=== PATIENT | female | born 1955 | race Caucasian/White ===

== ENCOUNTER 2017-01-02 11:06 | Emergency (ER) | payer BC ==
[2017-01-02] MEDS ORDERED: 0.9 % SODIUM CHLORIDE 1,000 ML BAG IV ONE (11:08)
--- NOTE | 2017-01-02 11:13 | Emergency Department Record ---
History of Present Illness - General Stated Complaint: DIZZINESS/CLAMMY FEELING Time Seen by Provider: 01/02/17 11:08 Source: Patient Mode of Arrival: Ambulatory Limitations: No limitations - History of Present Illness Initial comments: 61 yo female presents with episodes over the last 2-3 days. She states she develops a clammy, nauseated, dizzy feeling. The symptoms come and go in waves. She feels nauseated but no vomiting. No chest pain. She feels a sense of room spinning at times. She has associated gassy bloated feeling. No history of CAD. She states she has anemia and hypothyroidism. Her PCP is Dr Suarez in [place]. She has significant anxiety that worsens when an episode occurs -: Days(s) Location: Head Radiation: Non-Radiating Quality: Other Consistency: Intermittent Improves with: Immobilization Worsens with: Movement Associated Symptoms: Diaphoresis, Loss of appetite, Nausea/vomiting, Weakness - Arrington Coma Scale Eye Response: (4) Open spontaneously Motor Response: (6) Obeys commands Verbal Response: (5) Oriented Gemma Total: 15 - Related Data Home Medications Medication Instructions Recorded Confirmed Last Taken Buspirone HCl [Buspar] 10 mg PO DAILY 07/28/15 01/02/17 12/15/16 C-Diclofenac 5% 1 ml TOP TID 07/28/15 01/02/17 01/01/17 Clonazepam [Klonopin] 1 mg PO TID 07/28/15 01/02/17 01/01/17 Cyanocobalamin (Vitamin B-12) 1,500 mcg PO DAILY 07/28/15 01/02/17 01/01/17 [Vitamin B-12] Ergocalciferol (Vitamin D2) 50,000 unit PO WEEKLY 07/28/15 07/28/15 01/01/17 [Vitamin D2] Levothyroxine Sodium [Levoxyl] 100 mcg PO DAILY 07/28/15 01/02/17 01/02/17 Pnv No.95/Ferrous Fum/Folic AC 1 each PO DAILY 07/28/15 01/02/17 01/01/17 [ Tablet] Ranitidine HCl [Zantac] 150 mg PO DAILY PRN 07/28/15 07/28/15 12/15/16 Zinc 100 mg PO DAILY 07/28/15 07/28/15 01/01/17 Previous Rx's Medication Instructions Recorded Meclizine HCl [Antivert] 25 mg PO Q8H #15 tablet 01/02/17 Ondansetron [Zofran Odt] 4 mg PO Q8H #15 tab.rapdis 01/02/17 Allergies Allergy/AdvReac Type Severity Reaction Status Date / Time No Known Drug Allergies Allergy Unknown Unverified 11/11/13 10:06 [NO KNOWN DRUG ALLERGIES] Review of Systems Constitutional: Reports: Malaise, Weakness. Denies: Chills, Fever Eyes: Denies: Eye discharge, Eye pain, Photophobia, Vision change ENT: Denies: Congestion, Throat pain Respiratory: Denies: Cough, Dyspnea, Hemoptysis, Stridor, Wheezes Cardiovascular: Denies: Arrhythmia, Chest pain, Dyspnea on exertion, Edema, Palpitations, Syncope Endocrine: Reports: Fatigue Gastrointestinal: Reports: Nausea. Denies: Abdominal pain, Diarrhea, Vomiting Genitourinary: Denies: Dyspareunia, Dysuria, Retention, Urgency Musculoskeletal: Denies: Arthralgia, Back pain, Joint swelling, Myalgia Skin: Denies: Bruising, Change in color, Rash Neurological: Reports: Vertigo, Weakness. Denies: Confusion, Headache, Numbness , Tingling, Tremors Psychiatric: Reports: Anxiety Hematological/Lymphatic: Denies: Blood Clots, Easy bleeding, Easy bruising, Swollen glands Past Medical History - SOCIAL HISTORY Smoking Status: Never smoker - RESPIRATORY Hx Respiratory Disorders: No - CARDIOVASCULAR Hx Cardio Disorders: No - NEURO Hx Neuro Disorders: No - GI Hx GI Disorders: Yes Hx Irritable Bowel: Yes - Hx Genitourinary Disorders: Yes Hx Bladder Problem: Yes (stress incontinence) Comment:: pessary - ENDOCRINE Hx Endocrine Disorders: No Hx Thyroid Disease: Yes Comment:: hypothyroid - MUSCULOSKELETAL Hx Musculoskeletal Disorders: Yes Hx Arthritis: Yes Hx Osteoporosis: Yes - PSYCH Hx Psych Problems: Yes Hx Anxiety: Yes Hx Depression: Yes - HEMATOLOGY/ONCOLOGY Hx Hematology/Oncology Disorders: No Family Medical History Hx Diabetes: Mother Physical Exam - General General Appearance: Alert, Oriented x3, Cooperative, No acute distress, Anxious Limitations: No limitations - Head Head exam: Atraumatic, Normocephalic, Normal inspection - Eye Eye exam: Normal appearance, PERRL, EOMI. negative: Conjunctival injection, Nystagmus, Periorbital swelling, Scleral icterus - ENT ENT exam: Normal exam Ear exam: Normal external inspection Nasal Exam: Normal inspection Mouth exam: Normal external inspection Teeth exam: Normal inspection Throat exam: Normal inspection - Neck Neck exam: Normal inspection, Full ROM. negative: Tenderness - Respiratory Respiratory exam: Normal lung sounds bilaterally. negative: Respiratory distress, Rhonchi, Stridor, Wheezes - Cardiovascular Cardiovascular Exam: Regular rate, Normal rhythm, Normal heart sounds Peripheral Pulses: 2+: Radial (R), Radial (L) - GI/Abdominal GI/Abdominal exam: Soft. negative: Tenderness - Rectal Rectal exam: Deferred - exam: Deferred - Extremities Extremities exam: Normal inspection, Full ROM, Normal capillary refill. negative: Pedal edema, Tenderness - Back Back exam: Reports: Normal inspection, Full ROM. Denies: CVA tenderness (R), CVA tenderness (L), Muscle spasm, Paraspinal tenderness, Rash noted, Tenderness , Vertebral tenderness - Neurological Neurological exam: Alert, CN II-XII intact, Normal gait, Oriented X3, Reflexes normal. negative: Abnormal gait, Altered, Motor sensory deficit - Psychiatric Psychiatric exam: Anxious (mild) - Skin Skin exam: Dry, Intact, Normal color, Warm Course - Reevaluation(s) Reevaluation #1: The labs were reviewed. Hgb is 9.7 (She has known iron deficient anemia. She is starting iron through her doctor) Troponin is 0.012 No acute changes on the CMP The HCT was negative for any acute changes. 01/02/17 12:22 Reevaluation #2: TSH is 1.0 01/02/17 12:49 Reevaluation #3: The nausea, room spinning and dizziness are nearly gone and well controlled at this time. She continues IVF and is resting very comfortably. 01/02/17 13:08 Reevaluation #4: The patient continues to do well without recurrent room spinning or nausea 01/02/17 14:13 Reevaluation #5: Repeat Troponin is negative The patient continues to have controlled nausea and room spinning DC home with home care instructions and instructions on returning to the ER 01/02/17 16:00 Procedures - EKG Initial Date: 01/02/17 Time: 11:10 EKG: No Acute Changes EKG Detail: NSR, rate 68, intervals normal, axis normal, ST no acute changes Medical Decision Making - Lab Data Result diagrams: 01/02/17 11:40 01/02/17 11:40 Disposition Disposition: Discharge Clinical Impression: Dizziness Disposition: Home, Self-Care Condition: (1) Good Instructions: Dizziness (ED) Additional Instructions: Call your doctor today to schedule close follow up of your symptoms Return if you have any return of your symptoms You may take Zofran as directed for mild nausea and Antivert for dizziness Prescriptions: Meclizine HCl [Antivert] 25 mg PO Q8H #15 tablet Ondansetron [Zofran Odt] 4 mg PO Q8H #15 tab.[email or web address] Time of Disposition: 16:01
[2017-01-02] MEDS ORDERED: ONDANSETRON HCL IV 4 MG/2 ML VIAL IVP ONE ×2 (11:29→14:18)
[2017-01-02 11:49] LABS: BASO % 0.4 % (0-6); EOS % 2.4 % (0-6); GRAN % 69.2 % (47-80); LYMPH % 20.5 % (16-45); MEAN CORPUSCULAR HGB CONC 29.4 g/dl (32-36); MONO % 7.5 % (0-9); PLATELET COUNT 231 K/uL (130-400); RED BLOOD COUNT 5.06 M/uL (3.80-5.40); RED CELL DISTRIBUTION WIDTH 19.7 % (11.5-14.5); WHITE BLOOD COUNT W/O DIFF 4.9 K/uL (4.2-12.2)
[2017-01-02 12:00] LABS: HEMOGLOBIN 9.7 gm/dl (11.6-16.0); MEAN CORPUSCULAR HEMOGLOBIN 19.1 pg (27-33)
[2017-01-02 12:01] LABS: MEAN CELL VOLUME 65.2 fl (81-97)
[2017-01-02 12:05] LABS: ALB/GLOB RATIO 1.3 (1.1-1.8); ALBUMIN 4.3 gm/dL (3.5-5.0); ALKALINE PHOSPHATASE 86 U/L (38-126); ALT/SGPT 24 U/L (9-52); ANION GAP 9.3 (7-16); AST/SGOT 23 U/L (14-36); BILIRUBIN,TOTAL 0.71 mg/dL (0.2-1.3); BLOOD UREA NITROGEN 13 mg/dL (7-17); CARBON DIOXIDE 25.7 mmol/L (22-30); CREATININE 0.7 mg/dL (0.52-1.04); EST GLOMERULAR FILTRATION RATE > 60 ml/min; GLUCOSE,RANDOM 113 mg/dL (70-110); TOTAL PROTEIN 7.6 gm/dL (6.3-8.2)
[2017-01-02 12:09] LABS: URINE APPEARANCE CLEAR; URINE BILIRUBIN NEGATIVE (NEGATIVE); URINE BLOOD NEGATIVE (NEGATIVE); URINE COLOR YELLOW; URINE GLUCOSE (UA) NEGATIVE (NEGATIVE); URINE KETONE NEGATIVE (NEGATIVE); URINE LEUKOCYTE ESTERASE NEGATIVE (NEGATIVE); URINE NITRITE NEGATIVE (NEGATIVE); URINE PROTEIN NEGATIVE (NEGATIVE); URINE UROBILINOGEN 0.2 E.U./dL (0.20 - 1.00)
[2017-01-02 12:16] LABS: INR 0.97; PARTIAL THROMBOPLASTIN TIME 22.9 SECONDS (24.5-39.1)
[2017-01-02 12:17] LABS: TROPONIN I < 0.012 ng/mL (0.00-0.034)
[2017-01-02] MEDS ORDERED: MECLIZINE 25 MG TABLET PO ONE (12:23)
[2017-01-02 12:35] LABS: THYROID STIMULATING HORMONE 1.08 uIU/ml (0.465-4.68)
--- NOTE | 2017-01-03 08:40 | CT SCAN REPORT ---
EXAM: CT OF THE HEAD WITHOUT CONTRAST HISTORY: DIZZINESS, WEAKNESS AND SHAKINESS WITH NAUSEA FOR THREE DAYS. TECHNIQUE: Routine noncontrast CT examination of the head was performed. Comparison: None. FINDINGS: There is borderline to mild prominence of the subarachnoid spaces. The ventricles are not enlarged. Minor periventricular and subcortical white matter lucencies questioned within the frontal lobes. No other area of abnormally increased or decreased attenuation is noted throughout the brain substance. No abnormal extraaxial fluid collection is seen. The visualized paranasal sinuses and mastoid air cells are clear. The orbits as visualized are unremarkable. IMPRESSION: 1. NO CT EVIDENCE OF ACUTE MAJOR VESSEL INFARCT, INTRACRANIAL HEMORRHAGE, NOR MASS. 2. BORDERLINE CORTICAL ATROPHY. MINIMAL WHITE MATTER LUCENCIES IN EACH FRONTAL LOBE ARE NONSPECIFIC, BUT LIKELY AREAS OF CHRONIC SMALL VESSEL ISCHEMIA. JOB NUMBER: [id number] [facility]
== END 2017-01-02 16:24 | disposition home or self-care (01) ==
LOC: ER 11:06
DX: R42 Dizziness and giddiness (principal); R11.0 Nausea; E03.9 Hypothyroidism, unspecified; D50.9 Iron deficiency anemia, unspecified; R53.1 Weakness; R14.0 Abdominal distension (gaseous)
CPT/HCPCS: 99284 ×2; 96376; 96374; 96361; 83735; 85025; 85730; 85610; 84484; 80053; 81003; 84443; 70450; 93005; 93010; J2405; J7030

== ENCOUNTER 2019-06-07 13:51 | Emergency (ER) | payer BC ==
[2019-06-07 15:18] LABS: ABSOLUTE NEUTROPHIL COUNT 4.18; BASO % 0.5 % (0-6); EOS % 3.9 % (0-6); GRAN % 71.1 % (47-80); HEMATOCRIT 44.3 % (35.0-47.0); HEMOGLOBIN 13.8 gm/dl (11.6-16.0); LYMPH % 16.8 % (16-45); MEAN CELL VOLUME 83.3 fl (81-97); MEAN CORPUSCULAR HEMOGLOBIN 25.9 pg (27-33); MEAN CORPUSCULAR HGB CONC 31.2 g/dl (32-36); MEAN PLATELET VOLUME 12.9 fl (7.4-10.4); MONO % 7.7 % (0-9); PLATELET COUNT 132 K/uL (130-400); RED BLOOD COUNT 5.32 M/uL (3.80-5.40); RED CELL DISTRIBUTION WIDTH 15.7 % (11.5-14.5); WHITE BLOOD COUNT W/O DIFF 5.9 K/uL (4.2-12.2)
[2019-06-07 15:23] LABS: BLOOD UREA NITROGEN 13 mg/dL (8-23); CREATININE 0.6 mg/dL (0.5-0.9); EST GLOMERULAR FILTRATION RATE > 60 mL/min
[2019-06-07 15:26] LABS: GLUCOSE,RANDOM 116 mg/dL (74-109)
--- NOTE | 2019-06-07 15:37 | CT SCAN REPORT ---
EXAMINATION: CT Head without IV Contrast EXAM DATE: 06/07/2019 3:23 PM TECHNIQUE: Standard protocol CT images of the head were obtained without intravenous contrast. Davies l and sagittal reconstructed images were created. INDICATION: headache COMPARISON: CT scan head dated January 02, 2017 HAND DOMINANCE: Unknown. ENCOUNTER: Not applicable FINDINGS: 1. There is no intracranial mass, midline shift, extraaxial fluid collection or hemorrhage. 2. The ventricles, sulci and cisterns are normal. 3. Within the anterior aspect of left thalamus, there is a 3.4 mm focus of decreased attenuation whi ch may represent chronic lacunar infarct. 4. There is no fracture. 5. The visualized aspects of the orbits, paranasal sinuses, and mastoid air cells are normal. IMPRESSION: Findings suggestive of a 3 mm chronic lacunar infarct within the anterior aspect of the left thalamus . Otherwise no CT evidence of an acute intracranial process. Dictated by: Flaco Chamberlain MD on 06/07/2019 3:33 PM. .
[2019-06-07 16:08] LABS: ERYTHROCYTE SEDIMENTATION RATE 7 mm/hr (0-30)
--- NOTE | 2019-06-07 16:12 | Emergency Department Record ---
History of Present Illness - General Chief Complaint: Headache Migraine Stated Complaint: VALENTINO Time Seen by Provider: 06/07/19 14:33 Source: Patient Mode of Arrival: Ambulatory Limitations: No limitations - History of Present Illness Initial Comments: last night at 1800 pt had a sudden onset of numbness of her r hand, arm, and face w blurry vision in her r eye. she then developed a 'massive headache'. the numbness is gone now but the headache is still there but better. it is a dull sche now. she went to her pain clinic dr cisneros and they told her to go the emergency dept. Complaint: Headache Onset/Timin -: Hour(s) Onset Description: Sudden Location: Diffuse Quality: Aching, Other Consistency: Other (getting better) Context: Occured at rest Associated Symptoms: Nausea - Symptoms of Stroke Symptom Onset Unknown: Yes (states started 1800 06/06/19. Now resolved except for headache.) Symptoms of stroke: Numbness, Weakness of Face Muscles - Related Data Previous Rx's Medication Instructions Recorded Meclizine HCl [Antivert] 25 mg PO Q8H #15 tablet 01/02/17 Allergies Allergy/AdvReac Type Severity Reaction Status Date / Time No Known Drug Allergies Allergy Unknown Verified 06/07/19 14:11 [NO KNOWN DRUG ALLERGIES] Travel Screening - Travel/Exposure Within Last 30 Days Have you traveled within the last 30 days?: No - Travel/Exposure Within Last Year Have you traveled outside the [place] in the last year?: No - Additonal Travel Details Have you been exposed to anyone with a communicable illness?: No - Travel Symptoms Symptom Screening: Headache Review of Systems Reviewed: No additional complaints except as noted below Constitutional: Reports: As per HPI. Denies: Chills, Fever, Malaise, Night sweats, Weakness, Weight change Eyes: Reports: As per HPI. Denies: Eye discharge, Eye pain, Photophobia, Vision change ENT: Reports: As per HPI. Denies: Congestion, Dental pain, Ear pain, Epistaxis, Hearing loss, Throat pain Respiratory: Reports: As per HPI. Denies: Cough, Dyspnea, Hemoptysis, Stridor, Wheezes Cardiovascular: Reports: As per HPI. Denies: Arrhythmia, Chest pain, Dyspnea on exertion, Edema, Murmurs, Orthopnea, Palpitations, Paroxysmal nocturnal dyspnea, Rheumatic Fever, Syncope Endocrine: Reports: As per HPI. Denies: Fatigue, Heat or cold intolerance, Polydipsia, Polyuria Gastrointestinal: Reports: As per HPI. Denies: Abdominal pain, Constipation, Diarrhea, Hematemesis, Hematochezia, Melena, Nausea, Vomiting Genitourinary: Reports: As per HPI. Denies: Abnormal menses, Discharge, Dyspareunia, Dysuria, Frequency, Hematuria, Incontinence, Retention, Urgency Musculoskeletal: Reports: As per HPI. Denies: Arthralgia, Back pain, Gout, Joint swelling, Myalgia, Neck pain Skin: Reports: As per HPI. Denies: Bruising, Change in color, Change in hair/nails, Lesions, Pruritus, Rash Neurological: Reports: As per HPI. Denies: Abnormal gait, Confusion, Headache, Numbness, Paresthesias, Seizure, Tingling, Tremors, Vertigo, Weakness Psychiatric: Reports: As per HPI. Denies: Anxiety, Auditory hallucinations, Depression, Homicidal thoughts, Suicidal thoughts, Visual hallucinations Hematological/Lymphatic: Reports: As per HPI. Denies: Anemia, Blood Clots, Easy bleeding, Easy bruising, Swollen glands Past Medical History - SOCIAL HISTORY Smoking Status: Never smoker Alcohol Use: None Drug Use: None - RESPIRATORY Hx Respiratory Disorders: No - CARDIOVASCULAR Hx Cardio Disorders: No - NEURO Hx Neuro Disorders: No - GI Hx GI Disorders: Yes Hx Irritable Bowel: Yes - Hx Genitourinary Disorders: Yes Hx Bladder Problem: Yes (stress incontinence) Comment:: pessary - ENDOCRINE Hx Endocrine Disorders: No Hx Thyroid Disease: Yes Comment:: hypothyroid - MUSCULOSKELETAL Hx Musculoskeletal Disorders: Yes Hx Arthritis: Yes Hx Osteoporosis: Yes - PSYCH Hx Psych Problems: Yes Hx Anxiety: Yes Hx Depression: Yes - HEMATOLOGY/ONCOLOGY Hx Hematology/Oncology Disorders: No Family Medical History Any Significant Family History?: No Hx Diabetes: Mother Physical Exam - General General Appearance: Alert, Oriented x3, Cooperative, No acute distress - Head Head exam: Normal inspection - Eye Eye exam: Normal appearance, PERRL, EOMI Pupils: Normal accommodation - ENT ENT exam: Normal exam, Mucous membranes moist, Normal external ear exam, Normal orophraynx Ear exam: Normal external inspection. negative: External canal tenderness Nasal Exam: Normal inspection. negative: Discharge, Sinus tenderness Mouth exam: Normal external inspection, Tongue normal Teeth exam: Normal inspection. negative: Dental caries Throat exam: Normal inspection. negative: Tonsillar erythema, Tonsillar exudate - Neck Neck exam: Normal inspection, Full ROM. negative: Tenderness - Respiratory Respiratory exam: Normal lung sounds bilaterally. negative: Respiratory distress - Cardiovascular Cardiovascular Exam: Regular rate, Normal rhythm, Normal heart sounds - GI/Abdominal GI/Abdominal exam: Soft, Normal bowel sounds. negative: Tenderness - Rectal Rectal exam: Deferred - exam: Deferred - Extremities Extremities exam: Normal inspection, Full ROM, Normal capillary refill. negative: Tenderness - Back Back exam: Reports: Normal inspection, Full ROM. Denies: Muscle spasm, Rash noted, Tenderness - Neurological Neurological exam: Alert, CN II-XII intact, Normal gait, Oriented X3 - Psychiatric Psychiatric exam: Normal affect, Normal mood - Skin Skin exam: Dry, Intact, Normal color, Warm Course Vital Signs 06/07/19 13:56 Temperature 97.6 F Pulse Rate 67 Respiratory 16 Rate Blood Pressure 142/96 Pulse Ox 97 - Reevaluation(s) Reevaluation #1: 06/07/19 16:50 pt still has a mild valentino but no neuro deficits Reevaluation #2: 06/07/19 16:54 pt refuses to be admitted but agreed to stay for 4hr troponin Reevaluation #3: 06/07/19 17:08 pt has no valentino. dr spear from stroke team states offer pt lp which pt adamently refuses. dr spear felt pt could be worked up as an outpt Medical Decision Making - Lab Data Result diagrams: 06/07/19 15:01 06/07/19 15:01 Lab Results 06/07/19 06/07/19 Range/Units 15:01 15:01 WBC 5.9 (4.2-12.2) K/uL RBC 5.32 (3.80-5.40) M/uL Hgb 13.8 (11.6-16.0) gm/dl Hct 44.3 (35.0-47.0) % MCV 83.3 (81-97) fl MCH 25.9 L (27-33) pg MCHC 31.2 L (32-36) g/dl RDW 15.7 H (11.5-14.5) % Plt Count 132 (130-400) K/uL MPV 12.9 H (7.4-10.4) fl Gran % 71.1 (47-80) % Lymphocytes % 16.8 (16-45) % Monocytes % 7.7 (0-9) % Eosinophils % 3.9 (0-6) % Basophils % 0.5 (0-6) % Absolute Neutrophils 4.18 Sodium 143 (136-145) mmol/L Potassium 4.2 (3.4-4.5) mmol/L Chloride 102 (98-107) mmol/L Carbon Dioxide 27.0 (22-29) mmol/L Anion Gap 14.0 (7-16) BUN 13 (8-23) mg/dL Creatinine 0.6 (0.5-0.9) mg/dL Estimated GFR > 60 mL/min Random Glucose 116 H (74-109) mg/dL Calcium 9.7 (8.8-10.2) mg/dL Disposition Disposition: Discharge Clinical Impression: Right sided numbness Disposition: Home, Self-Care Condition: (1) Good Instructions: Acute Headache (ED), Paresthesia (ED) Additional Instructions: follow up with family doctor on monday. return sooner if worse. have echo of heart and doppler of carotid arteries jere Forms: Patient Portal Access Quality - Quality Measures Quality Measures: N/A - Blood Pressure Screening Does Patient Have Any of the Following: No Blood Pressure Classification: Hypertensive Reading Systolic Measurement: 142 Diastolic Measurement: 96 Screening for High Blood Pressure: < First Hypertensive BP, F/U Documented > [G8950] First Hypertensive Follow-up Interventions: Follow-up with rescreen GT 1 day and LT 4 weeks.
== END 2019-06-07 17:23 | disposition home or self-care (01) ==
LOC: ER 13:51
DX: R20.0 Anesthesia of skin (principal); H53.8 Other visual disturbances; R51 Headache; R11.0 Nausea; R29.810 Facial weakness
CPT/HCPCS: 70450; 80048; 85025; 85651; 93005; 93010; 99284